=== PATIENT | female | born 1965 ===

== ENCOUNTER 2017-09-21 07:58 | Emergency (ER) | payer BC ==
[2017-09-21 08:07] VITALS: BP 122/78
--- NOTE | 2017-09-21 08:18 | UC ---
Cardiac HPI - HPI Summary HPI Summary: C/o chest pain in waves that woke her up this morning at 7:30am, in waves every 25 sec for about 10 sec intensity 10/10, intense and shooting, midline to the right. Denies SOB, jaw or UE pain or back pain. Denies cardiac history, medications are levothyroxine and calcium supplements, last meal was last night for dinner. She denies PUD. She had a prophylactic mastectomy 6 weeks ago and has a skin ulcer overlying right breast which is healing. - History of Current Complaint Chief Complaint: UCChestPain Stated Complaint: CHEST SPASM Time Seen by Provider: 09/21/17 08:05 Hx Obtained From: Patient Hx Last Menstrual Period: n/a Onset/Duration: Sudden Onset, Lasting Hours Initial Severity: Severe Current Severity: Severe Pain Intensity: 7 Chest Pain Location: Lower Sternal, Right Lateral Character: Sharp/Stabbing Aggravating Factor(s): Nothing Alleviating Factor(s): Nothing - Risk Factors Pulmonary Embolism Risk Factors: Recent Surgery Cardiac Risk Factors: Negative Atrial Fibrillation: Negative TAD Risk Factors: Negative - Allergy/Home Medications Allergies/Adverse Reactions: Allergies Allergy/AdvReac Type Severity Reaction Status Date / Time codeine Allergy Nausea And Verified 09/21/17 08:08 Vomiting Sulfa (Sulfonamide Allergy Unknown Verified 09/21/17 08:08 Antibiotics) Reaction Details PMH/Surg Hx/FS Hx/Imm Hx Previously Healthy: Yes Endocrine History: Hypothyroidism - Surgical History Surgical History: Yes Surgery Procedure, Year, and Place: pylonidal cyst, oopherectomy, right ACL, hysterectomy. double mastectomy - Family History Known Family History: Positive: None Family History: none - Social History Alcohol Use: Weekly Alcohol Amount: 2-3 Substance Use Type: None Smoking Status (MU): Never Smoked Tobacco - Immunization History Most Recent Tetanus Shot: unsure of date Review of Systems Constitutional: Negative Cardiovascular: Chest Pain All Other Systems Reviewed And Are Negative: Yes Physical Exam Triage Information Reviewed: Yes Appearance: Pain Distress Vital Signs: Initial Vital Signs Temp 98.2 F 09/21/17 08:00 Pulse 79 09/21/17 08:00 Resp 20 09/21/17 08:00 BP 122/78 09/21/17 08:00 Pulse Ox 100 09/21/17 08:00 Vital Signs Reviewed: Yes Eyes: Positive: Conjunctiva Clear ENT: Positive: Pharynx normal, Uvula midline Neck: Positive: Supple, Nontender, No Lymphadenopathy Respiratory: Positive: Lungs clear, Normal breath sounds, No respiratory distress, No accessory muscle use, Other: - mild tenderness on palpation of sternum Cardiovascular: Positive: RRR, No Murmur, Pulses Normal, Brisk Capillary Refill , Tachycardia Abdomen Description: Positive: Nontender, No Organomegaly, Soft Bowel Sounds: Positive: Present - Assessment/Plan Course Of Treatment: Patient was transferred to ED for evaluation and monitoring. IV line stablished. EKG shows NSR with flat T waves V2-4. - Clinical Impression Provider Diagnoses: Chest Pain Discharge - Discharge Plan Condition: Critical Disposition: [facility] Patient Education Materials: Chest Pain (ED) Referrals: Bhavesh Velázquez MD [Primary Care Provider] -
== END 2017-09-21 08:35 | disposition short-term general hospital (02) ==
LOC: UCEAST 07:58
DX: R07.89 Other chest pain (principal); E03.9 Hypothyroidism, unspecified; Z88.5 Allergy status to narcotic agent; Z88.2 Allergy status to sulfonamides
CPT/HCPCS: 93005; 99213; G0463

== ENCOUNTER 2017-09-21 08:53 | Emergency (ER) | payer BC ==
[2017-09-21] MEDS ORDERED: HYDROmorphone INJ* 1 MG/ML CARPUJECT SYRINGE IV ONE (09:19)
[2017-09-21] MEDS ORDERED: Ondansetron INJ* 2 MG/ML VIAL IV ONE (09:19)
[2017-09-21] MEDS ORDERED: Ketorolac INJ* 30 MG/ML 1 ML VIAL IV ONE (09:19)
[2017-09-21 09:54] LABS: ABS Basophils 0.1 10^3/ul (0-0.2); ABS Eosinophils 0.3 10^3/ul (0-0.6); ABS Lymphocytes 1.7 10^3/ul (1.0-4.8); ABS Monocytes 0.4 10^3/ul (0-0.8); ABS Neutrophils 2.7 10^3/ul (1.5-7.7); ABS Nucleated RBC 0 10^3/ul; Eosinophil % 5.6 % (0-6); Hematocrit 40 % (35-47); Hemoglobin 13.4 g/dl (12.0-16.0); Lymphocyte % 33.2 % (25-47); Mean Corpuscular HGB Conc 34 g/dl (31-36); Mean Corpuscular Hemoglobin 31 pg (27-31); Mean Corpuscular Volume 90 fL (80-97); Mean Platelet Volume 7 um3 (7.4-10.4); Nucleated Red Blood Cells % 0.1; Platelet Count 282 10^3/ul (150-450); Red Blood Count 4.38 10^6/ul (4.0-5.4); Red Cell Distribution Width 14 % (10.5-15); White Blood Count 5.2 10^3/ul (3.5-10.8)
--- NOTE | 2017-09-21 10:05 | RAD ---
HISTORY: Chest pain COMPARISONS: None VIEWS: 1: frontal portable view of the chest at 9:50 AM FINDINGS: LINES AND TUBES: None. CARDIOMEDIASTINAL SILHOUETTE: The cardiomediastinal silhouette is normal for portable technique. PLEURA: The costophrenic angles are sharp. No pleural abnormalities are noted. LUNG PARENCHYMA: The lungs are clear. ABDOMEN: The upper abdomen is clear. There is no subphrenic gas. BONES AND SOFT TISSUES: No bone or soft tissue abnormalities are noted. IMPRESSION: NO ACTIVE CARDIOPULMONARY DISEASE.
[2017-09-21 10:07] LABS: EGFR Non-African American 72.2 (>60)
[2017-09-21 13:14] VITALS: BP 96/60
--- NOTE | 2017-09-22 12:14 | ED ---
Cliff Harris Stephanie, scribed for Oswaldo Yee MD on 09/21/17 at 0932 . HPI Chest Pain - HPI Summary HPI Summary: The pt is a 51 y/o F presenting to the ED with c/o lower chest wall pain that began at 07:30 today. Symptoms include diaphoresis. The pain woke her up from sleep and is moving across the chest. The pt states the pain is intermittent and is described as a squeezing and stabbing pain. The pt denies SOB, LE edema and nausea. The pt had a preventative double mastectomy due to testing positive for the BRCA2 gene. She states she has been taking Tylenol, ibuprofen and gabapentin for pain relief. - History of Current Complaint Chief Complaint: EDBreastComplaint Time Seen by Provider: 09/21/17 09:00 Hx Obtained From: Patient Hx Last Menstrual Period: n/a Onset/Duration: Started Hours Ago - 2, Still Present Timing: Intermittent Current Severity: Moderate Pain Intensity: 4 Pain Scale Used: 0-10 Numeric Chest Pain Location: Left Anterior, Right Anterior Chest Pain Radiates: No Character: Pressure/Squeezing, Sharp/Stabbing Aggravating Factor(s): Nothing Alleviating Factor(s): Nothing Associated Signs and Symptoms: Positive: Chest Pain, Diaphoresis. Negative: Shortness of Breath, Nausea, Edema - LE - Allergy/Home Medications Allergies/Adverse Reactions: Allergies Allergy/AdvReac Type Severity Reaction Status Date / Time codeine Allergy Nausea And Verified 09/21/17 08:08 Vomiting Sulfa (Sulfonamide Allergy Unknown Verified 09/21/17 08:08 Antibiotics) Reaction Details PMH/Surg Hx/FS Hx/Imm Hx Endocrine/Hematology History: Reports: Hx Thyroid Disease EENT History: Denies: Hx Deafness - Surgical History Surgery Procedure, Year, and Place: pylonidal cyst, oopherectomy, right ACL, hysterectomy. double mastectomy Infectious Disease History: No Infectious Disease History: Reports: Hx Shingles Denies: Traveled Outside the [place] in Last 30 Days - Family History Known Family History: Positive: Unknown - The pt denies any family hx. Family History: none - Social History Occupation: Employed Full-time Lives: With Family Alcohol Use: Weekly Alcohol Amount: 2-3 Substance Use Type: Reports: None Smoking Status (MU): Never Smoked Tobacco Review of Systems Positive: Skin Diaphoresis. Negative: Fever Positive: Chest Pain Negative: Shortness Of Breath Negative: Nausea Negative: Edema - LE All Other Systems Reviewed And Are Negative: Yes Physical Exam - Summary Physical Exam Summary: Appearance: The patient is well-nourished in no acute distress and in no acute pain. Skin: The skin is warm and dry and skin color reflects adequate perfusion. HEENT: The head is normocephalic and atraumatic. The pupils are equal and reactive. The conjunctivae are clear and without drainage. Nares are patent and without drainage. Mouth reveals moist mucous membranes and the throat is without erythema and exudate. The external ears are intact. The ear canals are patent and without drainage. The tympanic membranes are intact. Neck: the neck is supple with full range of motion and non-tender. There are no carotid bruits. There is no neck vein distension. Respiratory: Chest is non-tender. Lungs are clear to auscultation and breath sounds are symmetrical and equal. Cardiovascular: Heart is regular rate and rhythm. There is no murmur or rub auscultated. There is no peripheral edema and pulses are symmetrical and equal. Abdomen: The abdomen is soft and non-tender. There are normal bowel sounds heard in all four quadrants and there is no organomegaly palpated. Musculoskeletal: There is no back tenderness noted. Extremities are non-tender with full range of motion. There is good capillary refill. There is no peripheral edema or calf tenderness elicited. tender over anterior chest wall. Healing scar with no obvious sign of infection. Neurological: Patient is alert and oriented to person, place and time. The patient has symmetrical motor strength in all four extremities. Cranial nerves are grossly intact. Deep tendon reflexes are symmetrical and equal in all four extremities. Psychiatric: The patient has an appropriate affect and does not exhibit any anxiety or depression. Triage Information Reviewed: Yes Vital Signs On Initial Exam: Initial Vitals Temp Pulse Resp BP Pulse Ox 97.8 F 72 16 111/75 100 09/21/17 08:58 09/21/17 08:58 09/21/17 08:58 09/21/17 08:58 09/21/17 08:58 Vital Signs Reviewed: Yes Diagnostics - Vital Signs Vital Signs Temp Pulse Resp BP Pulse Ox 09/21/17 08:58 97.8 F 72 16 111/75 100 - Laboratory Lab Results: Lab Results 09/21/17 09/21/17 09/21/17 Range/Units 09:41 09:41 09:41 WBC (3.5-10.8) 10^3/ul RBC (4.0-5.4) 10^6/ul Hgb (12.0-16.0) g/dl Hct (35-47) % MCV (80-97) fL MCH (27-31) pg MCHC (31-36) g/dl RDW (10.5-15) % Plt Count (150-450) 10^3/ul MPV (7.4-10.4) um3 Neut % (Auto) (38-83) % Lymph % (Auto) (25-47) % [place] % (Auto) (0-7) % Eos % (Auto) (0-6) % Baso % (Auto) (0-2) % Absolute Neuts (auto) (1.5-7.7) 10^3/ul Absolute Lymphs (auto) (1.0-4.8) 10^3/ul Absolute Monos (auto) (0-0.8) 10^3/ul Absolute Eos (auto) (0-0.6) 10^3/ul Absolute Basos (auto) (0-0.2) 10^3/ul Absolute Nucleated RBC 10^3/ul Nucleated RBC % ESR (0-30) mm/Hr D-Dimer, Quantitative 327 H (Less Than 230) ng/mL Sodium 137 (133-145) mmol/L Potassium 3.8 (3.5-5.0) mmol/L Chloride 105 (101-111) mmol/L Carbon Dioxide 25 (22-32) mmol/L Anion Gap 7 (2-11) mmol/L BUN 10 (6-24) mg/dL Creatinine 0.83 (0.51-0.95) mg/dL Est GFR ( Amer) 92.8 (>60) Est GFR (Non-Af Amer) 72.2 (>60) BUN/Creatinine Ratio 12.0 (8-20) Glucose 100 (70-100) mg/dL Lactic Acid (0.5-2.0) mmol/L Calcium 9.6 (8.6-10.3) mg/dL Total Bilirubin 0.60 (0.2-1.0) mg/dL AST 20 (13-39) U/L ALT 48 (7-52) U/L Alkaline Phosphatase 60 (34-104) U/L Total Creatine Kinase 69 (10-223) U/L Troponin I 0.00 (<0.04) ng/mL C-Reactive Protein < 1.00 (< 5.00) mg/L B-Natriuretic Peptide 12 ( - 100) pg/mL Total Protein 6.9 (6.4-8.9) g/dL Albumin 4.0 (3.2-5.2) g/dL Globulin 2.9 (2-4) g/dL Albumin/Globulin Ratio 1.4 (1-3) 09/21/17 09/21/17 09/21/17 Range/Units 09:41 09:41 12:12 WBC 5.2 (3.5-10.8) 10^3/ul RBC 4.38 (4.0-5.4) 10^6/ul Hgb 13.4 (12.0-16.0) g/dl Hct 40 (35-47) % MCV 90 (80-97) fL MCH 31 (27-31) pg MCHC 34 (31-36) g/dl RDW 14 (10.5-15) % Plt Count 282 (150-450) 10^3/ul MPV 7 L (7.4-10.4) um3 Neut % (Auto) 52.7 (38-83) % Lymph % (Auto) 33.2 (25-47) % [place] % (Auto) 7.3 H (0-7) % Eos % (Auto) 5.6 (0-6) % Baso % (Auto) 1.2 (0-2) % Absolute Neuts (auto) 2.7 (1.5-7.7) 10^3/ul Absolute Lymphs (auto) 1.7 (1.0-4.8) 10^3/ul Absolute Monos (auto) 0.4 (0-0.8) 10^3/ul Absolute Eos (auto) 0.3 (0-0.6) 10^3/ul Absolute Basos (auto) 0.1 (0-0.2) 10^3/ul Absolute Nucleated RBC 0 10^3/ul Nucleated RBC % 0.1 ESR 14 (0-30) mm/Hr D-Dimer, Quantitative (Less Than 230) ng/mL Sodium (133-145) mmol/L Potassium (3.5-5.0) mmol/L Chloride (101-111) mmol/L Carbon Dioxide (22-32) mmol/L Anion Gap (2-11) mmol/L BUN (6-24) mg/dL Creatinine (0.51-0.95) mg/dL Est GFR ( Amer) (>60) Est GFR (Non-Af Amer) (>60) BUN/Creatinine Ratio (8-20) Glucose (70-100) mg/dL Lactic Acid 0.9 (0.5-2.0) mmol/L Calcium (8.6-10.3) mg/dL Total Bilirubin (0.2-1.0) mg/dL AST (13-39) U/L ALT (7-52) U/L Alkaline Phosphatase (34-104) U/L Total Creatine Kinase (10-223) U/L Troponin I 0.00 (<0.04) ng/mL C-Reactive Protein (< 5.00) mg/L B-Natriuretic Peptide ( - 100) pg/mL Total Protein (6.4-8.9) g/dL Albumin (3.2-5.2) g/dL Globulin (2-4) g/dL Albumin/Globulin Ratio (1-3) Result Diagrams: 09/21/17 09:41 09/21/17 09:41 Lab Statement: Any lab studies that have been ordered have been reviewed, and results considered in the medical decision making process. - Radiology CXR Xray Interpretation: No Acute Changes Radiology Interpretation Completed By: Radiologist - NO ACTIVE CARDIOPULMONARY DISEASE. - EKG 09:35 Cardiac Rate: NL EKG Rhythm: Sinus Rhythm ST Segment: Non-Specific Ectopy: None EKG Interpretation: Nml EKG Chest Pain Course/Dx - Course Course Of Treatment: Ms. Grace had a double mastectomy about 6 weeks ago and has been healing. She woke up this AM with a very intense squeezing pain across her lower chest that has begun to ease a bit. She was very tender in that area. She had two trops that were negative here and a d-dimer that was only 327. She has healing wounds which explains that. She never had any SOB or vital sign changes. She improved here without medications and was D/C'd to F /U with her PMD. - Diagnoses Provider Diagnoses: Chest wall pain Discharge - Discharge Plan Condition: Stable Disposition: HOME Patient Education Materials: Chest Wall Pain (ED) Referrals: Bhavesh Velázquez MD [Primary Care Provider] - 3 Days The documentation as recorded by the Cliff penaloza Stephanie accurately reflects the service I personally performed and the decisions made by me, Oswaldo Yee MD.
== END 2017-09-21 13:12 | disposition home or self-care (01) ==
LOC: ED 08:53
DX: R07.89 Other chest pain (principal); Z88.5 Allergy status to narcotic agent; Z88.2 Allergy status to sulfonamides
CPT/HCPCS: 36415; 71045; 80053; 82550; 83605; 83880; 84484; 85025; 85379; 85652; 86140; 93005; 96374; 96375; 99283; J1170; J1885; J2405

== ENCOUNTER 2018-09-28 11:59 | Emergency (ER) | payer BC ==
--- OUTSIDE RECORDS SUMMARY | 2018-09-28 13:33 | XMS REPORT | Continuity of Care Document ---
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 Troponin-I (TnI) 0.00 ng/mL <0.04 B-Type Natriuretic Peptide BNP 12 pg/mL 6 C Reactive Protein < 1.00 mg/L N < 5.00 7 Erythrocyte Sed Rate 14 mm/Hr N 0-30 Xray 05/03/2017 [facility] Medicine X-Ray, Cervical mild DJD 8 Spine Min 4 Views, Ap, Lat, & Both Oblique CBC Auto Diff 08/20/2016 [facility] White Blood Count 6.0 10^3/uL N 3.5-10.8 [phone] Red Blood Count 4.34 10^6/uL N 4.0-5.4 Hemoglobin 13.4 g/dL N 12.0-16.0 Hematocrit 39 % N 35-47 Mean Corpuscular Volume 91 fL N 80-97 Mean Corpuscular Hemoglobin 31 pg N 27-31 Mean Corpuscular HGB Conc 34 g/dL N 31-36 Red Cell Distribution Width 14 % N 10.5-15 Platelet Count 283 10^3/uL N 150-450 Mean Platelet Volume 8 um3 N 7.4-10.4 Abs Neutrophils 3.5 10^3/uL N 1.5-7.7 Abs Lymphocytes 2.0 10^3/uL N 1.0-4.8 Abs Monocytes 0.4 10^3/uL N 0-0.8 Abs Eosinophils 0.1 10^3/uL N 0-0.6 Abs Basophils 0 10^3/uL N 0-0.2 Abs Nucleated RBC 0.01 10^3/uL N Granulocyte % 58.3 % N 38-83 Lymphocyte % 32.6 % N 25-47 Monocyte % 6.5 % N 1-9 Eosinophil % 1.8 % N 0-6 Basophil % 0.8 % N 0-2 Nucleated Red Blood Cells % 0.1 N Comp Metabolic Panel 08/20/2016 [facility] Sodium 138 mmol/L N 133- 145 [phone] Potassium 4.0 mmol/L N 3.5-5.0 Chloride 104 mmol/L N 101-111 Co2 Carbon Dioxide 30 mmol/L N 22-32 Anion Gap 4 mmol/L N 2-11 Glucose 90 mg/dL N 70-100 Blood Urea Nitrogen 18 mg/dL N 6-24 Creatinine 0.83 mg/dL N 0.51-0.95 BUN/Creatinine Ratio 21.7 High 8-20 Calcium 9.6 mg/dL N 8.6-10.3 Total Protein 6.9 g/dL N 6.4-8.9 Albumin 4.2 g/dL N 3.2-5.2 Globulin 2.7 g/dL N 2-4 Albumin/Globulin Ratio 1.6 N 1-3 Total Bilirubin 0.40 mg/dL N 0.2-1.0 Alkaline Phosphatase 48 U/L N 34-104 Alt 20 U/L N 7-52 Ast 19 U/L N 13-39 Egfr Non- 72.5 N >60 Egfr 93.2 N >60 9 Laboratory test 08/20/2016 [facility] TSH (Thyroid 0.97 mcIU/mL N 0.34-5.60 finding [phone] Stim Horm) T3 Free 3.40 pg/mL N 2.5-3.9 Free T4 (Free Thyroxine) 1.00 ng/dL N 0.61-1.12 Laboratory test 03/23/2016 [facility] Surgical Pathology SEE RESULT 10 finding [phone] BELOW Xray 12/22/2015 [facility] X-Ray, Foot, wnl Right, Complete Laboratory test 12/15/2014 [facility] TSH (Thyroid Stim 1.21 N 0.34 11, 12 finding [phone] Horm) ?IU/mL -5.6 0 Lipid Profile 12/15/2014 [facility] Triglycerides 69 mg/dL N 13 (Trig/Chol/HDL) [phone] Cholesterol 229 mg/dL N 14 HDL Cholesterol 66.6 mg/dL N 15 LDL Cholesterol 149 mg/dL N 16 Comp Metabolic Panel 12/15/2014 [facility] Sodium 141 mmol/L N 133- 145 [phone] Potassium 4.2 mmol/L N 3.5-5.0 Chloride 106 mmol/L N 101-111 Co2 Carbon Dioxide 27 mmol/L N 22-32 Anion Gap 8 mmol/L N 2-11 Glucose 80 mg/dL N 70-100 Blood Urea Nitrogen 16 mg/dL N 6-24 Creatinine 0.95 mg/dL N 0.51-0.95 BUN/Creatinine Ratio 16.8 N 8-20 Calcium 9.5 mg/dL N 8.6-10.3 Total Protein 6.5 g/dL N 6.4-8.9 Albumin 4.2 g/dL N 3.2-5.2 Globulin 2.3 g/dL N 2-4 Albumin/Globulin Ratio 1.8 N 1-3 Total Bilirubin 0.70 mg/dL N 0.2-1.0 Alkaline Phosphatase 52 U/L N 34-104 Alt 14 U/L N 7-52 Ast 19 U/L N 13-39 Egfr Non- 62.3 N >60 Egfr 80.1 N >60 17 CBC Auto Diff 02/01/2014 [facility] White Blood Count 4.5 10^3/uL Low 4.8-10.8 [phone] Red Blood Count 4.30 10^6/uL N 4.0-5.4 Hemoglobin 13.6 g/dL N 12.0-16.0 Hematocrit 40 % N 35-47 Mean Corpuscular Volume 93 fL N 80-97 Mean Corpuscular Hemoglobin 32 pg High 27-31 Mean Corpuscular HGB Conc 34 g/dL N 31-36 Red Cell Distribution Width 14 % N 10.5-15 Platelet Count 269 10^3/uL N 150-450 Mean Platelet Volume 7 um3 Low 7.4-10.4 Abs Neutrophils 2.5 10^3/uL N 1.5-7.7 Abs Lymphocytes 1.6 10^3/uL N 1.0-4.8 Abs Monocytes 0.3 10^3/uL N 0-0.8 Abs Eosinophils 0.1 10^3/uL N 0-0.6 Abs Basophils 0 10^3/uL N 0-0.2 Abs Nucleated RBC 0 10^3/uL N Granulocyte % 54.3 % N 38-83 Lymphocyte % 35.5 % N 25-47 Monocyte % 7.7 % N 1-9 Eosinophil % 1.8 % N 0-6 Basophil % 0.7 % N 0-2 Nucleated Red Blood Cells % 0.1 N Comp Metabolic Panel 02/01/2014 [facility] Sodium 137 mmol/L N 133- 145 [phone] Potassium 4.2 mmol/L N 3.7-5.6 Chloride 102 mmol/L N 101-111 Co2 Carbon Dioxide 29 mmol/L N 22-32 Anion Gap 6 mmol/L N 2-11 Glucose 83 mg/dL N 70-100 Blood Urea Nitrogen 15 mg/dL N 6-24 Creatinine 0.98 mg/dL High 0.51-0.95 BUN/Creatinine Ratio 15.3 N 8-20 Calcium 9.8 mg/dL N 8.6-10.3 Total Protein 6.8 g/dL N 6.4-8.9 Albumin 4.5 g/dL N 3.2-5.2 Globulin 2.3 g/dL N 2-4 Albumin/Globulin Ratio 2.0 N 1-3 Total Bilirubin 0.70 mg/dL N 0.2-1.0 Alkaline Phosphatase 46 U/L N 34-104 Alt 11 U/L N 7-52 Ast 18 U/L N 13-39 Egfr Non- 60.3 N >60 Egfr 77.6 N >60 18 Laboratory test 02/01/2014 [facility] TSH (Thyroid 1.24 IU/mL N 0.34- 5.60 finding [phone] Stimulating Horm) D Dimer Quantitative < 200 ng/mL N Less Than 230 19 Troponin I 0.00 ng/mL N <0.03 20 Lyme Western Blot 02/01/2014 [facility] Lyme Disease IgG Negative N Negative [phone] Ab WB Lyme Disease IgG Bands Present p41, p39, p28, p <SEE NOTE> kDa N 21 Lyme Disease IgM Ab WB Negative N Negative Lyme Disease IgM Bands Present No bands detecte <SEE NOTE> kDa N 22 Lyme Disease Interpretation See Comment N 23 Laboratory test 06/03/2013 [facility] TSH (Thyroid 1.60 miu/mL 0.34- 5.60 finding [phone] Stimulating Horm) Laboratory test 03/25/2012 [facility] TSH 0.84 MIU/ML 0.34-5.60 finding [phone] Laboratory test 12/28/2011 [facility] TSH 0.17 MIU/ML Low 0.34-5.60 finding [phone] Laboratory test 01/04/2011 [facility] TSH 0.41 MIU/ML 0.34-5.60 finding [phone] CBC With Manual 12/03/2010 [facility] White Blood 5.4 CUMM 4.8-10.8 Diff [phone] Count Red Cell Count 3.95 CUMM Low 4.2-5.4 Hemoglobin 12.6 g/dL 12.0-16.0 Hematocrit 37 % 35-47 Mean Corpuscular Volume 94 um3 79-97 Mean Corpuscular Hemoglob 32 pg High 27-31 Mean Corpuscular HGB Cone 34 g/dL 32-36 Redcell Distribution WDTH 13 % 10.5-15 Platelet Count 229 CUMM 150-450 Mean Platelet Volume 7.8 um3 7.4-10.4 Polysegmented Neutrophil 61 % 38-83 Lymphocyte 30 % 25-47 Monocyte 4 % 0-13 Eosinophil 5 % 0-6 Absolute Neutrophil Count 3.2 RBC Morphology NORMAL Comp Metabolic Panel 12/03/2010 [facility] Sodium 138 mmol/L 135- 145 [phone] Potassium 4.2 mmol/L 3.5-5.0 Chloride 105 mmol/L 101-111 Co2 (Carbon Dioxide) 28.0 mmol/L 22-32 Anion Gap 5.0 mmol/L 2-11 24 Glucose 84 mg/dL 70-100 BUN 11 mg/dL 6-24 Creatinine 0.80 mg/dL 0.50-1.40 One Over Creatinine 1.20 BUN/Creatinine Ratio 13.8 8-20 Calcium 9.1 mg/dL 8.1-9.9 Total Protein 5.8 GM/DL Low 6.2-8.1 Albumin 3.5 GM/DL Low 3.6-5.4 Globulin 2.3 GM/DL 2-4 Albumin/Globulin Ratio 1.5 1-3 Bilirubin Total 0.8 mg/dL 0.4-1.5 25 Alkaline Phosphatase 33 U/L 30-110 Alt (SGPT) 10 U/L Low 14-54 Ast (Sgot) 17 U/L 12-42 eGFR Non- 77.6 > 60 eGFR 99.8 > 60 26 Laboratory test 06/05/2010 [facility] TSH 0.62 MIU/ML 0.34-5.60 finding [phone] CBC With Electronic 03/20/2010 [facility] White Blood 7.0 CUMM 4.8- 10.8 Diff [phone] Count Red Cell Count 4.40 CUMM 4.2-5.4 Hemoglobin 14.0 g/dL 12.0-16.0 Hematocrit 40 % 35-47 Mean Corpuscular Volume 92 um3 79-97 Mean Corpuscular Hemoglob 32 pg High 27-31 Mean Corpuscular HGB Cone 35 g/dL 32-36 Redcell Distribution WDTH 14 % 10.5-15 Platelet Count 310 CUMM 150-450 Mean Platelet Volume 6.9 um3 Low 7.4-10.4 Gran % 73.5 % 38-83 Lymph % 20.5 % Low 25-47 Mononuclear % 5.3 % 1-9 Eosinophil % 0.4 % 0-6 Basophil % 0.3 % 0-2 Abs Lymphs 1.4 1.0-4.8 Abs Mononuclear 0.4 0-0.8 Absolute Neutrophil Count 5.2 1.5-7.7 Abs Eosinophils 0 0-0.6 Abs Basophils 0 0-0.2 Lipid Profile 03/20/2010 [facility] Triglyceride 47 mg/dL 40-200 (Trig/Chol/HDL) [phone] Cholesterol 185 mg/dL Less Than 200 27 High Density Lipoprotein 55 mg/dL 40-60 28 Cholesterol/HDL Ratio 3.36 AVERAGE 1-4.44 Low Density Lipoprotein 121 mg/dL High Less Than 100 29 Comp Metabolic Panel 03/20/2010 [facility] Sodium 137 mmol/L 135- 145 [phone] Potassium 4.1 mmol/L 3.5-5.0 Chloride 106 mmol/L 101-111 Co2 (Carbon Dioxide) 23.0 mmol/L 22-32 Anion Gap 8.0 mmol/L 2-11 30 Glucose 82 mg/dL 70-100 31 BUN 10 mg/dL 6-24 Creatinine 1.00 mg/dL 0.50-1.40 One Over Creatinine 1.00 BUN/Creatinine Ratio 10.0 8-20 Calcium 9.5 mg/dL 8.1-9.9 32 Total Protein 6.9 GM/DL 6.2-8.1 Albumin 4.2 GM/DL 3.6-5.4 Globulin 2.7 GM/DL 2-4 Albumin/Globulin Ratio 1.6 1-3 Bilirubin Total 0.9 mg/dL 0.4-1.5 33 Alkaline Phosphatase 39 U/L 30-110 Alt (SGPT) 15 U/L 14-54 Ast (Sgot) 22 U/L 12-42 eGFR Non- 63.7 > 60 eGFR 77.1 > 60 34 Laboratory test 03/20/2010 [facility] TSH 0.21 MIU/ML Low 0.34-5.60 finding [phone] Xray 03/20/2010 [facility] Medicine X-Ray, wnl Humerus, Min. Two Views LT Laboratory test 12/15/2009 [facility] O P: Giardia and 35 finding [phone] Giardia/Cry cryp <SEE pto Screen NOTE> Laboratory test 12/14/2009 [facility] TSH 1.00 MIU/ML 0.34-5.60 finding [phone] CBC With 12/14/2009 [facility] White Blood 5.1 CUMM 4.8-10.8 Electronic Diff [phone] Count Red Cell Count 4.05 CUMM Low 4.2-5.4 Hemoglobin 12.8 g/dL 12.0-16.0 Hematocrit 38 % 35-47 Mean Corpuscular Volume 92 um3 79-97 Mean Corpuscular Hemoglob 32 pg High 27-31 Mean Corpuscular HGB Cone 34 g/dL 32-36 Redcell Distribution WDTH 13 % 10.5-15 Platelet Count 254 CUMM 150-450 Mean Platelet Volume 7.8 um3 7.4-10.4 Gran % 71.1 % 38-83 Lymph % 18.4 % Low 25-47 Mononuclear % 8.7 % 1-9 Eosinophil % 1.3 % 0-6 Basophil % 0.5 % 0-2 Abs Lymphs 0.9 Low 1.0-4.8 Abs Mononuclear 0.4 0-0.8 Absolute Neutrophil Count 3.6 1.5-7.7 Abs Eosinophils 0.1 0-0.6 Abs Basophils 0 0-0.2 36 Comp Metabolic Panel 12/14/2009 [facility] Sodium 135 mmol/L 135- 145 [phone] Potassium 4.1 mmol/L 3.5-5.0 Chloride 107 mmol/L 101-111 Co2 (Carbon Dioxide) 25.0 mmol/L 22-32 Anion Gap 3.0 mmol/L 2-11 37 Glucose 88 mg/dL 70-100 38 BUN 13 mg/dL 6-24 Creatinine 0.80 mg/dL 0.50-1.40 One Over Creatinine 1.20 BUN/Creatinine Ratio 16.3 8-20 Calcium 9.2 mg/dL 8.1-9.9 39 Total Protein 6.2 GM/DL 6.2-8.1 Albumin 3.9 GM/DL 3.6-5.4 Globulin 2.3 GM/DL 2-4 Albumin/Globulin Ratio 1.7 1-3 Bilirubin Total 0.9 mg/dL 0.4-1.5 40 Alkaline Phosphatase 31 U/L 30-110 Alt (SGPT) 17 U/L 14-54 Ast (Sgot) 23 U/L 12-42 eGFR Non- 82.4 > 60 eGFR 99.8 > 60 41 Laboratory test finding 12/14/2009 [facility] Lipase 40 U/L 22-51 [phone] Amylase 59 U/L 30-125 Laboratory 04/27/2009 [facility] TSH 2.07 0.34-5.60 test finding [phone] MIU/ML Laboratory 12/08/2008 [facility] TSH Thyroid 0.374 Low 0.450-4.500 test finding Stimulating Horm Xray 04/23/2008 [facility] X-Ray, Hand, nl Min. 3 Views, RT Laboratory 12/01/2007 [facility] TSH Thyroid 0.584 test finding Stimulating Horm T4 Total Thyroxine 9.8 Laboratory test 03/28/2007 [facility] TSH Thyroid 0.615 finding Stimulating Horm Laboratory test 10/07/2006 [facility] Bordetella NEGATIVE 42 finding [phone] Pertussis Laboratory test 01/03/2006 [facility] TSH Thyroid 3.30 0.40-5. finding Stimulating Horm 50 Laboratory test 12/27/2004 [facility]. TSH Thyroid 1.970 finding LABORATORY Stimulating Horm [phone] CBC With 12/27/2004 On License [facility] White Blood Count 4.9 Electronic Diff LABORATORY [phone] RBC Red Blood Count 4.33 Hemoglobin 12.8 Hematocrit 38.7 MCV (Corpuscular Volume) 89.2 MCH (Corpuscular Hemoglobin) 29.6 MCHC (Corpuscular Hemog Conc) 33.2 RDW 16.0 Platelet Count 271 MPV 7.9 Neutrophils 55.4 Lymphocytes 31.1 Monocytes 6.4 Eosinophils 6.8 Basophils 0.3 Absolute Basophils 0.0 Absolute Eosinophils 0.3 Absolute Lymphocytes 1.5 Absolute Monocytes 0.3 Absolute Neutrophils 2.7 CMP Panel 12/27/2004 [facility]. Albumin 4.1 LABORATORY [phone] Alt - SGPT 29 Calcium 9.4 Carbon Dioxide 25 Chloride 109 Creatinine 1.1 Glucose Serum 98 Alkaline Phosphatase 45 Potassium 4.7 Protien Total 7.0 Sodium 142 Ast - Sgot 21 BUN - Urea Nitrogen 15 Lipid Panel 12/27/2004 [facility]. Cholesterol Total 219 LABORATORY [phone] Cholesterol/HDL Ratio 3.7 High Density Lipoprotein 60 LDL/HDL Risk Ratio 2.2 LDL Low Density Lipoprotein 133 Triglycerides 129 Laboratory test finding 07/10/2004 In House Culture Throat NEG Laboratory test finding 06/30/2004 [facility] TSH 1.920 [phone] T3 Total 96.9 T4 Free 1.3 1 Because ethnic data is not always readily available, this report includes an eGFR for both -Americans and non- Americans. The National Kidney Disease Education Program (NKDEP) does not endorse the use of the MDRD equation for patients that are not between the ages of 18 and 70, are , have extremes of body size, muscle mass, or nutritional status, or are non- or non-. According to the National Kidney Foundation, irrespective of diagnosis, the stage of the disease is based on the level of kidney function: Stage Description GFR(mL/min/1.73 m(2)) 1 Kidney damage with normal or decreased GFR 90 2 Kidney damage with mild decrease in GFR 60-89 3 Moderate decrease in GFR 30-59 4 Severe decrease in GFR 15-29 5 Kidney failure <15 (or dialysis) 2 KH aware 3 Please note: The following may produce a false positive D Dimer test: - Rheumatoid factor greater than 60 IU/ml - Plasma hemoglobin greater than 0.05 gm/dl - Bilirubin greater than 50 mg/dl - Lipids greater than 1000 mg/dl - FDP greater than 20 ug/ml 4 [place] Severe Sepsis and Septic Shock Management Bundle Measure requires all lactic acids initially measuring >2.0 mmol/L be repeated. 5 Because ethnic data is not always readily available, this report includes an eGFR for both -Americans and non- Americans. The National Kidney Disease Education Program (NKDEP) does not endorse the use of the MDRD equation for patients that are not between the ages of 18 and 70, are , have extremes of body size, muscle mass, or nutritional status, or are non- or non-. According to the National Kidney Foundation, irrespective of diagnosis, the stage of the disease is based on the level of kidney function: Stage Description GFR(mL/min/1.73 m(2)) 1 Kidney damage with normal or decreased GFR 90 2 Kidney damage with mild decrease in GFR 60-89 3 Moderate decrease in GFR 30-59 4 Severe decrease in GFR 15-29 5 Kidney failure <15 (or dialysis) 6 >100 to <200 pg/mL: likely compensated congestive heart failure (CHF) 200 to 400 pg/mL: likely moderate CHF >400 pg/mL: likely moderate to severe CHF 7 Acute inflammation: >10.00 8 Normal lordosis normal formainal space. No fracture. mild DJD worst location C5-6. 9 Because ethnic data is not always readily available, this report includes an eGFR for both -Americans and non- Americans. The National Kidney Disease Education Program (NKDEP) does not endorse the use of the MDRD equation for patients that are not between the ages of 18 and 70, are , have extremes of body size, muscle mass, or nutritional status, or are non- or non-. According to the National Kidney Foundation, irrespective of diagnosis, the stage of the disease is based on the level of kidney function: Stage Description GFR(mL/min/1.73 m(2)) 1 Kidney damage with normal or decreased GFR 90 2 Kidney damage with mild decrease in GFR 60-89 3 Moderate decrease in GFR 30-59 4 Severe decrease in GFR 15-29 5 Kidney failure <15 (or dialysis) 10 SEE RESULT BELOW Name: HAMMADSIENNAROGER M : [address]: Aaron Ariza DO Acct: [id number] Unit: [id number] AGE: 50 Location: [facility] Re03/23/16 SEX: F Status: REG REF SPEC: [id number] HELLEN: 03/23/16-[address]: Aaron Ariza DO REQ: [id number] RECD: 03/27/169 STATUS: SOUT _ ORDERED: MB-45 (HMB-45), LEVEL IV, HYS99-EST/2, CP36-DCI COMMENTS: [id number] THIS IS A CORRECTED REPORT 05/31/16 Corrected Report FINAL DIAGNOSIS Skin, right shoulder, excision: -- Malignant melanoma in situ, lentigo maligna type. COMMENT: Malignant melanoma in situ is present 1.4 mm from the blue inked margin (see gross) and 2.6 mm from the black inked margin (see gross). HMB 45 and Sox 10 immunostains, with appropriately reacting controls, were performed on sections cut from blocks C and D in the evaluation of this lesion and support the diagnosis. Dr. Rosen reviewed this case in intradepartmental consultation and agrees with the diagnosis. PRE-OPERATIVE DIAGNOSIS Neoplasm of uncertain behavior of skin, right superior border of scapula 1.1 cm lesion removed full thickness GROSS DESCRIPTION The specimen is received in formalin labeled, Skin-Right Shoulder, and consists of a 2.6 x 0.8 cm salter wrinkled hairbearing skin ellipse excised to a depth of 1.0 cm with an eccentric 0.6 x 0.5 cm brown area. There is an undesignated suture attached to one long axis, which is arbitrarily designated 12:00. The specimen is inked as follows: 9:00 half black, 3:00 half blue and 12:00 tip green, serially sectioned from 12:00 to 6:00 and entirely submitted in cassettes A through D to include ellipse ends in cassette A. Signed (signature on file) Halley Kelley MD 05/06 1331 END OF REPORT * ML=Testing performed at Main Lab DEPARTMENT OF PATHOLOGY, [address] [place] [address] Oliver Rosen M.D. Director [facility] # [id number] 11 PT IS FASTING 12 PT IS FASTING 13 Desirable <150 Borderline high 150-199 High 200-499 Very High >500 14 Desirable <200 Borderline high 200-239 High >239 15 Low <40 Desirable: 40-60 High: >60 16 Desirable: <100 mg/dL Near Optimal: 100-129 mg/dL Borderline High: 130-159 mg/dL High: 160-189 mg/dL Very High: >189 mg/dL 17 Because ethnic data is not always readily available, this report includes an eGFR for both -Americans and non- Americans. The National Kidney Disease Education Program (NKDEP) does not endorse the use of the MDRD equation for patients that are not between the ages of 18 and 70, are , have extremes of body size, muscle mass, or nutritional status, or are non- or non-. According to the National Kidney Foundation, irrespective of diagnosis, the stage of the disease is based on the level of kidney function: Stage Description GFR(mL/min/1.73 m(2)) 1 Kidney damage with normal or decreased GFR 90 2 Kidney damage with mild decrease in GFR 60-89 3 Moderate decrease in GFR 30-59 4 Severe decrease in GFR 15-29 5 Kidney failure <15 (or dialysis) 18 Because ethnic data is not always readily available, this report includes an eGFR for both -Americans and non- Americans. The National Kidney Disease Education Program (NKDEP) does not endorse the use of the MDRD equation for patients that are not between the ages of 18 and 70, are , have extremes of body size, muscle mass, or nutritional status, or are non- or non-. According to the National Kidney Foundation, irrespective of diagnosis, the stage of the disease is based on the level of kidney function: Stage Description GFR(mL/min/1.73 m(2)) 1 Kidney damage with normal or decreased GFR 90 2 Kidney damage with mild decrease in GFR 60-89 3 Moderate decrease in GFR 30-59 4 Severe decrease in GFR 15-29 5 Kidney failure <15 (or dialysis) 19 Please note: The following may produce a false positive D Dimer test: - Rheumatoid factor greater than 60 IU/ml - Plasma hemoglobin greater than 0.05 gm/dl - Bilirubin greater than 50 mg/dl - Lipids greater than 1000 mg/dl - FDP greater than 20 ug/ml 20 Reference Range and Interpretation: TnI (ng/mL) Interpretation Less Than 0.03 ng/mL Not supportive of diagnosis of NC 0.03 - 0.50 ng/mL Indeterminate: suggest serial studies if clinically indicated. Greater than 0.5 ng/mL Consistent with diagnosis of NC 21 p41, p39, p28, p23, 22 No bands detected 23 Specific serologic response to B. burgdorferi infection is not detected, but cannot rule out early infection during which low or undetectable antibody levels to B. burgdorferi may be present. If clinically indicated, a new serum specimen should be submitted in 7-14 days. CDC criteria require >=5 bands for IgG or >=2 bands for IgM for the Immunoblot to be considered positive. Bands (e.g.,p41) may be detected in patients without Lyme disease, and patterns not meeting the CDC criteria should be interpreted with caution. Immunoblot should be ordered only on specimens that are positive or equivocal by a FDA-licensed Lyme disease antibody screening test (e.g., EIA). Test Performed by: [place] [address] Web Services Manager: Zay Rahman III, M.D. 24 Anion gap measurement may be of limited value in the presence of any alkalosis, especially in a combined acid base disorder. . 25 A metabolite of Naproxen, O-desmethylnaproxen, has been shown to interfere with the Jendrassik-Christopher method for measuring total bilirubin. Samples from patients who have taken Naproxen have shown spurious elevation in total bilirubin levels. 26 Because ethnic data is not always readily available, this report includes an eGFR for both -Americans and non- Americans. The National Kidney Disease Education Program (NKDEP) does not endorse the use of the MDRD equation for patients that are not between the ages of 18 and 70, are , have extremes of body size, muscle mass, or nutritional status, or are non- or non-. According to the National Kidney Foundation, irrespective of diagnosis, the stage of the disease is based on the level of kidney function: Stage Description GFR(mL/min/1.73 m(2)) 1 Kidney damage with normal or decreased GFR 90 2 Kidney damage with mild decrease in GFR 60-89 3 Moderate decrease in GFR 30-59 4 Severe decrease in GFR 15-29 5 Kidney failure <15 (or dialysis) 27 CHOLESTEROL INTERPRETATION: Desirable: Less than 200 MG/DL Borderline-High Risk: 200-239 MG/DL High-Risk: 240 MG/DL and over 28 HDL INTERPRETATION: Undesirable: High Risk: Less than 40 MG/DL Desirable: Low Risk: Greater than 60 MG/DL 29 LDL INTERPRETATION: Low Risk Optimal Level: LDL Less than 100 MG/DL Near or Above Optimal: LDL 100-129 MG/DL Borderline High Risk: LDL 130-159 MG/DL High Risk: LDL 160-189 MG/DL Very High Risk: LDL Greater than 189 MG/DL 30 Anion gap measurement may be of limited value in the presence of any alkalosis, especially in a combined acid base disorder. . 31 Note change in reference range as of 03/11/08. The change was based on recommendations from the [place] [employer]. 32 Please note change in reference range effective 07 . 33 A metabolite of Naproxen, O-desmethylnaproxen, has been shown to interfere with the Jendrassik-Windom method for measuring total bilirubin. Samples from patients who have taken Naproxen have shown spurious elevation in total bilirubin levels. 34 Because ethnic data is not always readily available, this report includes an eGFR for both -Americans and non- Americans. The National Kidney Disease Education Program (NKDEP) does not endorse the use of the MDRD equation for patients that are not between the ages of 18 and 70, are , have extremes of body size, muscle mass, or nutritional status, or are non- or non-. According to the National Kidney Foundation, irrespective of diagnosis, the stage of the disease is based on the level of kidney function: Stage Description GFR(mL/min/1.73 m(2)) 1 Kidney damage with normal or decreased GFR 90 2 Kidney damage with mild decrease in GFR 60-89 3 Moderate decrease in GFR 30-59 4 Severe decrease in GFR 15-29 5 Kidney failure <15 (or dialysis) 35 Giardia and cryptosporidium antigen testing performed by immunoassay. If patient is immunocompromised or has traveled to or is from a developing country, a full ova and parasite exam with microscopic (OPMIC) is recommended. All samples will be held one month in case full ova and parasite testing is requested. Contact the Microbiology Department at [phone]. TEST LIMITATIONS: As with all diagnostic procedures, the results obtained should be used in conjunction with other clinical information available the physician. Negative results can occur in samples containing antigen below lower limits of detection of the assay. The use of colonic washes, aspirates or other diluted sample types has not been established and could affect the performance of the assay. Stool samples contaminated with an oily or particulate base (eg. Barium, mineral oil etc.) could interfere with the test and are not recommended. NEGATIVE BY IMMUNOASSAY NEGATIVE BY IMMUNOASSAY 36 Lymphopenia % 37 Anion gap measurement may be of limited value in the presence of any alkalosis, especially in a combined acid base disorder. . 38 Note change in reference range as of 03/11/08. The change was based on recommendations from the [place] [employer]. 39 Please note change in reference range effective 07 . 40 A metabolite of Naproxen, O-desmethylnaproxen, has been shown to interfere with the Jendrassik-Christopher method for measuring total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
[2018-09-28 13:49] VITALS: BP 119/74
--- NOTE | 2018-09-28 13:57 | UC ---
Ear Complaint HPI - HPI Summary HPI Summary: 52 yo female presents with right ear pain for the last 2 days. She tells me that she has a long standing history of sinus issues. Over the last 2 months pt has been on 2 rounds of augmentin, cipro, and azithromycin for a "sinus infection". Most recently she finished cipro 2 days ago and is still complaining of sinus congestion and pressure. She has used a saline nasal spray , antihistamine, flonase, and netti pot with no relief. She is leaving for [place] in 2 days and thinks the warm weather will help. Today, she is concern about her right ear discomfort. Denies fever, chills, cough, sore throat, SOB, chest pain, dizziness. - History of Current Complaint Chief Complaint: UCGeneralIllness Stated Complaint: EAR COMPLAINT Time Seen by Provider: 09/28/18 13:49 Hx Obtained From: Patient Hx Last Menstrual Period: n/a Onset/Duration: Sudden Onset Severity Initially: Mild Severity Currently: Mild Pain Intensity: 4 Pain Scale Used: 0-10 Numeric - Allergies/Home Medications Allergies/Adverse Reactions: Allergies Allergy/AdvReac Type Severity Reaction Status Date / Time codeine Allergy Nausea And Verified 09/28/18 13:41 Vomiting Sulfa (Sulfonamide Allergy Unknown Verified 09/28/18 13:41 Antibiotics) Reaction Details PMH/Surg Hx/FS Hx/Imm Hx - Additional Past Medical History Additional PMH: BRCA Endocrine History: Hypothyroidism Psychological History: Anxiety - Surgical History Surgical History: Yes Surgery Procedure, Year, and Place: pylonidal cyst, oopherectomy, right ACL, hysterectomy. double mastectomy BRCA 2 - Family History Known Family History: Positive: Unknown - The pt denies any family hx. Family History: none - Social History Occupation: Employed Full-time Lives: With Family Alcohol Use: Weekly Alcohol Amount: 2-3 Substance Use Type: None Smoking Status (MU): Never Smoked Tobacco - Immunization History Most Recent Tetanus Shot: unsure of date Review of Systems All Other Systems Reviewed And Are Negative: Yes Constitutional: Positive: Negative Skin: Positive: Negative Eyes: Positive: Negative ENT: Positive: Ear Ache, Sinus Congestion Respiratory: Positive: Negative Cardiovascular: Positive: Negative Gastrointestinal: Positive: Negative Neurovascular: Positive: Negative Neurological: Positive: Negative Psychological: Positive: Negative Physical Exam - Summary Physical Exam Summary: GENERAL: NAD. WDWN. No pain distress. SKIN: No rashes, sores, lesions, or open wounds. HEENT: Head: AT/NC Eyes: EOM intact. Conjunctiva clear without inflammation or discharge. Ears: Hearing grossly normal. TMs intact, no bulging, erythema, or edema. B/L TMs with clear fluid behind Nose: Nasal mucosa pink and moist. NTTP maxillary and frontal sinus. Throat: Posterior oropharynx without exudates, erythema, or tonsillar enlargement. Uvula midline. NECK: Supple. Nontender. No lymphadenopathy. CHEST: CTAB. No r/r/w. No accessory muscle use. Breathing comfortably and in no distress. CV: RRR. Without m/r/g. Pulses intact. Cap refill <2seconds NEURO: Alert. PSYCH: Age appropriate behavior. Triage Information Reviewed: Yes Vital Signs: Initial Vital Signs Temp 99.6 F 09/28/18 13:43 Pulse 77 09/28/18 13:43 Resp 18 09/28/18 13:43 BP 119/74 09/28/18 13:43 Pulse Ox 99 09/28/18 13:43 Vital Signs Reviewed: Yes Ear Complaint Course/Dx - Course Course Of Treatment: Serous otitis media. Given her failure of multiple antibiotics and OTC medications - will treat a short course of steroids to decrease inflammation. I do believe her travel south to [place] will be helpful given the warmer weather. - Differential Dx/Diagnosis Provider Diagnosis: Serous otitis media Discharge - Sign-Out/Discharge Documenting (check all that apply): Patient Departure All imaging exams completed and their final reports reviewed: No Studies - Discharge Plan Condition: Stable Disposition: HOME Prescriptions: methylPREDNISolone [Medrol] 4 mg PO .PER HELEN #1 helen Patient Education Materials: Serous Otitis Media (ED) Referrals: Bhavesh Velázquez MD [Primary Care Provider] - Additional Instructions: If you develop a fever, shortness of breath, chest pain, new or worsening symptoms - please call your PCP or go to the ED. - Billing Disposition and Condition Condition: STABLE Disposition: Home
== END 2018-09-28 14:05 | disposition home or self-care (01) ==
LOC: UCEAST 11:59
DX: H65.91 Unspecified nonsuppurative otitis media, right ear (principal); Z88.5 Allergy status to narcotic agent; Z88.2 Allergy status to sulfonamides
CPT/HCPCS: 99212; G0463